=== PATIENT | female | born 1990 | race Caucasian/White ===

== ENCOUNTER → 2018-08-02 | Outpatient (CLI) | payer OTHER ==
[2018-08-02 09:28] LABS: EOS # 0.1 (0.04-0.40); EOS % 2.3 % (1.0-5.0); HEMATOCRIT 39.4 % (37.0-47.0); HEMOGLOBIN 13.3 g/dL (12.5-16.0); LYMPH# 2.3 (1.50-4.00); MEAN CELL VOLUME 87 fl (78-100); MEAN CORPUSCULAR HEMOGLOBIN 29 pg (27-31); MEAN CORPUSCULAR HGB CONC 34 g/dL (33-37); MEAN PLATELET VOLUME 10.4 fl (7.4-10.4); MONO # 0.4 (0.20-0.80); NEU # 2.4 (1.40-6.50); PLATELET COUNT 219 K/mm3 (130-400); RED BLOOD COUNT 4.55 M/mm3 (4.10-5.30); RED CELL DISTRIBUTION WIDTH 12.5 % (11.5-14.5); WHITE BLOOD COUNT 5.2 K/mm3 (4.8-10.8)
[2018-08-02 09:38] LABS: ALBUMIN 4.8 g/dL (3.5-5.0); CALCIUM 9.2 mg/dL (8.4-10.2); POTASSIUM 4.2 mmol/L (3.6-5.0); TOTAL BILIRUBIN 0.4 mg/dL (0.2-1.3); TOTAL PROTEIN 7.7 g/dL (6.3-8.2)
[2018-08-02 09:58] LABS: URINE APPEARANCE CLEAR; URINE BILIRUBIN NEGATIVE (NEGATIVE); URINE BLOOD NEGATIVE (NEGATIVE); URINE COLOR YELLOW; URINE GLUCOSE NEGATIVE (NEGATIVE); URINE KETONE NEGATIVE (NEGATIVE); URINE LEUKOCYTE ESTERASE NEGATIVE (NEGATIVE); URINE MUCUS PRESENT (NOT PRESENT); URINE NITRATE NEGATIVE (NEGATIVE); URINE PROTEIN(semi-quant) NEGATIVE (NEGATIVE); URINE UROBILINOGEN NORMAL (NORMAL); URINE WBC 0-1 /hpf (0-3)
== END ==
LOC: LAB 09:12
PROVIDERS: Internal Medicine
DX: K80.20 Calculus of gallbladder without cholecystitis without obstruction (principal)

== ENCOUNTER → 2018-12-05 | Outpatient (CLI) | payer OTHER ==
[2018-12-05 14:00] LABS: EOS % 0.8 % (1.0-5.0); HEMATOCRIT 38.6 % (37.0-47.0); HEMOGLOBIN 12.9 g/dL (12.5-16.0); MEAN CELL VOLUME 86 fl (78-100); MEAN CORPUSCULAR HEMOGLOBIN 29 pg (27-31); MEAN CORPUSCULAR HGB CONC 33 g/dL (33-37); MEAN PLATELET VOLUME 10.2 fl (7.4-10.4); MONO # 0.3 (0.20-0.80); NEU # 2.6 (1.40-6.50); PLATELET COUNT 234 K/mm3 (130-400); RED BLOOD COUNT 4.47 M/mm3 (4.10-5.30); RED CELL DISTRIBUTION WIDTH 12.9 % (11.5-14.5)
[2018-12-05 14:33] LABS: ALBUMIN 4.7 g/dL (3.5-5.0); CALCIUM 9.2 mg/dL (8.4-10.2); TOTAL BILIRUBIN 0.4 mg/dL (0.2-1.3); TOTAL PROTEIN 7.7 g/dL (6.3-8.2)
[2018-12-05 14:54] LABS: URINE APPEARANCE HAZY; URINE COLOR YELLOW; URINE GLUCOSE NEGATIVE (NEGATIVE); URINE KETONE NEGATIVE (NEGATIVE); URINE PROTEIN(semi-quant) NEGATIVE (NEGATIVE)
[2018-12-05 14:55] LABS: URINE BILIRUBIN NEGATIVE (NEGATIVE); URINE BLOOD NEGATIVE (NEGATIVE); URINE LEUKOCYTE ESTERASE NEGATIVE (NEGATIVE); URINE NITRATE NEGATIVE (NEGATIVE); URINE UROBILINOGEN NORMAL (NORMAL); URINE WBC 0-1 /hpf (0-3)
== END ==
LOC: LAB 13:42
PROVIDERS: Nurse Practitioner
DX: R53.1 Weakness (principal); R51 Headache

== ENCOUNTER → 2019-05-20 | Outpatient (CLI) | payer OTHER ==
[2019-05-20 12:14] LABS: BASO # 0.1 (0.02-0.10); EOS # 0.1 (0.04-0.40); EOS % 1.9 % (1.0-5.0); HEMATOCRIT 39.6 % (37.0-47.0); HEMOGLOBIN 13.4 g/dL (12.5-16.0); LYMPH# 2.6 (1.50-4.00); MEAN CELL VOLUME 87 fl (78-100); MEAN CORPUSCULAR HEMOGLOBIN 30 pg (27-31); MEAN CORPUSCULAR HGB CONC 34 g/dL (33-37); MONO # 0.4 (0.20-0.80); NEU # 2.6 (1.40-6.50); PLATELET COUNT 289 K/mm3 (130-400); RED BLOOD COUNT 4.54 M/mm3 (4.10-5.30); RED CELL DISTRIBUTION WIDTH 12.1 % (11.5-14.5); WHITE BLOOD COUNT 5.8 K/mm3 (4.8-10.8)
[2019-05-20 12:27] LABS: ALBUMIN 4.4 g/dL (3.5-5.0)
[2019-05-20 12:28] LABS: CALCIUM 9.4 mg/dL (8.3-10.5)
[2019-05-20 12:30] LABS: TOTAL PROTEIN 7.5 g/dL (6.4-8.3)
[2019-05-20 12:32] LABS: TOTAL BILIRUBIN 0.4 mg/dL (0.2-1.2)
== END ==
LOC: LAB 12:05
PROVIDERS: Internal Medicine
DX: Z00.00 Encounter for general adult medical examination without abnormal findings (principal)

== ENCOUNTER → 2020-01-14 | Outpatient (CLI) | payer OTHER ==
[2020-01-14 09:57] LABS: EOS # 0.1 (0.04-0.40); HEMATOCRIT 41.5 % (37.0-47.0); HEMOGLOBIN 14.1 g/dL (12.5-16.0); LYMPH# 2.5 (1.50-4.00); MEAN CELL VOLUME 89 fl (78-100); MEAN CORPUSCULAR HEMOGLOBIN 30 pg (27-31); MEAN CORPUSCULAR HGB CONC 34 g/dL (33-37); MONO # 0.4 (0.20-0.80); NEU # 2.2 (1.40-6.50); PLATELET COUNT 223 K/mm3 (130-400); RED BLOOD COUNT 4.66 M/mm3 (4.10-5.30); RED CELL DISTRIBUTION WIDTH 12.6 % (11.5-14.5); WHITE BLOOD COUNT 5.1 K/mm3 (4.8-10.8)
[2020-01-14 10:32] LABS: ALBUMIN 4.6 g/dL (3.5-5.0); POTASSIUM 3.8 mmol/L (3.5-5.1)
[2020-01-14 10:34] LABS: CALCIUM 9.4 mg/dL (8.3-10.5)
[2020-01-14 10:35] LABS: TOTAL PROTEIN 7.7 g/dL (6.4-8.3)
[2020-01-14 10:37] LABS: TOTAL BILIRUBIN 0.5 mg/dL (0.2-1.2)
[2020-01-14 12:15] LABS: ERYTHROCYTE SEDIMENTATION RATE 1 mm/hr (0-20)
== END ==
LOC: LAB 09:40
PROVIDERS: Internal Medicine
DX: J30.2 Other seasonal allergic rhinitis (principal); R06.02 Shortness of breath

== ENCOUNTER → 2020-04-07 | Outpatient (CLI) | payer OTHER ==
[2020-04-07 08:51] LABS: EOS # 0.1 (0.04-0.40); EOS % 2.4 % (1.0-5.0); HEMATOCRIT 39.2 % (37.0-47.0); HEMOGLOBIN 13.1 g/dL (12.5-16.0); LYMPH# 2.3 (1.50-4.00); MEAN CELL VOLUME 89 fl (78-100); MEAN CORPUSCULAR HEMOGLOBIN 30 pg (27-31); MEAN CORPUSCULAR HGB CONC 33 g/dL (33-37); MEAN PLATELET VOLUME 9.5 fl (7.4-10.4); MONO # 0.3 (0.20-0.80); NEU # 1.9 (1.40-6.50); PLATELET COUNT 234 K/mm3 (130-400); RED BLOOD COUNT 4.43 M/mm3 (4.10-5.30); RED CELL DISTRIBUTION WIDTH 12.5 % (11.5-14.5); WHITE BLOOD COUNT 4.5 K/mm3 (4.8-10.8)
[2020-04-07 09:06] LABS: ALBUMIN 4.4 g/dL (3.5-5.0); SODIUM 140 mmol/L (136-145)
[2020-04-07 09:07] LABS: CALCIUM 9.2 mg/dL (8.3-10.5)
[2020-04-07 09:08] LABS: GLUCOSE 67 mg/dL (65-105); TOTAL PROTEIN 7.3 g/dL (6.4-8.3)
[2020-04-07 09:09] LABS: CARBON DIOXIDE 23 mmol/L (22-29)
[2020-04-07 09:10] LABS: TOTAL BILIRUBIN 0.3 mg/dL (0.2-1.2)
[2020-04-07 09:14] LABS: AST-SGOT 23 U/L (5-34)
[2020-04-07 09:15] LABS: ALT/SGPT 29 U/L (0-55)
[2020-04-07 10:00] LABS: ERYTHROCYTE SEDIMENTATION RATE 2 mm/hr (0-20)
[2020-04-08 16:22] LABS: ANA SCREEN with REFLEX Negative (Negative)
== END ==
LOC: LAB 08:40
PROVIDERS: Internal Medicine
DX: R06.02 Shortness of breath (principal)

== ENCOUNTER → 2020-04-09 | Outpatient (CLI) | payer OTHER | LOC: VAS 07:51 → RAD 08:00 | DX: R06.02 Shortness of breath (principal) ==

== ENCOUNTER → 2020-05-12 | Outpatient (CLI) | payer OTHER, BC | LOC: LAB 16:44 | DX: J32.9 Chronic sinusitis, unspecified (principal) ==

== ENCOUNTER → 2020-05-29 | Outpatient (CLI) | payer BC | LOC: RAD 11:23 | DX: K76.89 Other specified diseases of liver (principal) ==

== ENCOUNTER → 2020-09-21 | Outpatient (CLI) | payer BC | LOC: VAS 09:07 | DX: O12.02 Gestational edema, second trimester (principal); Z3A.22 22 weeks gestation of pregnancy ==

== ENCOUNTER → 2021-04-12 | Outpatient (CLI) | payer BC | LOC: RAD 15:53 | DX: M54.5 Low back pain (principal) ==

== ENCOUNTER → 2022-04-18 | Outpatient (CLI) | payer BC ==
[2022-04-18 15:06] LABS: BASO # 0.03 K/mm3 (0.02-0.10); EOS # 0.03 K/mm3 (0.04-0.40); EOS % 0.7 % (1.0-5.0); HEMATOCRIT 35.8 % (37.0-47.0); LYMPH# 2.15 K/mm3 (1.50-4.00); MEAN CELL VOLUME 89 fl (78-100); MEAN CORPUSCULAR HEMOGLOBIN 30 pg (27-31); MEAN CORPUSCULAR HGB CONC 34 g/dL (33-37); MEAN PLATELET VOLUME 9.8 fl (7.4-10.4); MONO # 0.32 K/mm3 (0.20-0.80); NEU # 1.92 K/mm3 (1.40-6.50); PLATELET COUNT 194 K/mm3 (130-400); RED BLOOD COUNT 4.02 M/mm3 (4.10-5.30); WHITE BLOOD COUNT 4.5 K/mm3 (4.8-10.8)
[2022-04-18 15:16] LABS: ALBUMIN 4.3 g/dL (3.5-5.0); POTASSIUM 3.8 mmol/L (3.5-5.1); SODIUM 140 mmol/L (136-145)
[2022-04-18 15:17] LABS: CALCIUM 8.8 mg/dL (8.3-10.5)
[2022-04-18 15:18] LABS: GLUCOSE 81 mg/dL (65-105)
[2022-04-18 15:20] LABS: CARBON DIOXIDE 24 mmol/L (22-29); TOTAL BILIRUBIN 0.3 mg/dL (0.2-1.2)
[2022-04-18 15:24] LABS: AST-SGOT 15 U/L (5-34)
[2022-04-18 15:25] LABS: ALT/SGPT 15 U/L (0-55); LIPASE 29 U/L (8-78)
[2022-04-18 15:32] LABS: URINE APPEARANCE HAZY; URINE COLOR YELLOW
[2022-04-18 15:33] LABS: PH-URINE 6.5 (5.0 - 8.0); URINE BILIRUBIN NEGATIVE (NEGATIVE); URINE BLOOD NEGATIVE (NEGATIVE); URINE GLUCOSE NEGATIVE (NEGATIVE); URINE KETONE NEGATIVE (NEGATIVE); URINE LEUKOCYTE ESTERASE NEGATIVE (NEGATIVE); URINE NITRATE NEGATIVE (NEGATIVE); URINE PROTEIN(semi-quant) NEGATIVE (NEGATIVE); URINE UROBILINOGEN NORMAL (NORMAL); URINE WBC 0-1 /hpf (0-3)
[2022-04-18 16:48] LABS: ERYTHROCYTE SEDIMENTATION RATE 5 mm/hr (0-20)
== END ==
LOC: LAB 14:52
PROVIDERS: Internal Medicine
DX: R10.84 Generalized abdominal pain (principal)